=== PATIENT | male | born 1980 | race Two or more races ===

== ENCOUNTER 2025-03-17 08:00 | Emergency (ER) | payer OTHER ==
[~2025-03-17] VITALS: Ht 170.2 cm; Wt 105.7 kg
[2025-03-17] MEDS ORDERED: CEFTRIAXONE SODIUM 1,000 MG VIAL IV ONE (09:15)
[2025-03-17] MEDS ORDERED: KETOROLAC TROMETHAMINE 30 MG VIAL IV ONE (10:15)
== END 2025-03-17 10:20 | disposition home or self-care (01) ==
LOC: ER 08:54
DX: L08.82 Omphalitis not of newborn (principal)